=== PATIENT | female | born 2000 | race Caucasian/White ===

== ENCOUNTER 2021-03-08 14:01 | Emergency (ER) | payer BC ==
[2021-03-08 16:11] LABS: Urine Blood 3+ (Negative); Urine Glucose Negative (Negative); Urine Protein Negative (Negative)
[2021-03-08] MEDS ORDERED: MECLIZINE HCL 12.5 MG TAB ONE (16:41)
--- NOTE | 2021-03-08 16:55 | RAD REPORT ---
EXAM DESCRIPTION: RAD - Chest Single View - 03/08/2021 4:46 pm CLINICAL HISTORY: DIZZINESS Chest pain. COMPARISON: No comparisons FINDINGS: Portable technique limits examination quality. The lungs are grossly clear. The heart is normal in size. No displaced fractures. IMPRESSION: No acute intrathoracic process suspected.
--- NOTE | 2021-03-08 17:08 | EDPHYS ---
Physician Documentation [facility] Name: Shelly Medrano Age: 20 yrs Sex: Female : 2000 Arrival Date: 03/08/2021 Time: 14:04 Bed 30 Private MD: ED Physician Thao Gar HPI: 03/08 16:10 This 20 yrs old Female presents to ER via Wheelchair with complaints of pm1 Vertigo. 16:10 The patient presents with vertigo. Onset: The symptoms/episode began/occurred today. pm1 Context: just prior to the episode the patient experienced left ear pain yesterday, nausea for two days. Modifying factors: The symptoms are alleviated by closing eyes, holding head still, the symptoms are aggravated by movement of head, changing position. Associated signs and symptoms: Pertinent positives: nausea, dizziness, Pertinent negatives: chest pain, focal weakness, numbness, shortness of breath, tingling. Severity of symptoms: in the emergency department the symptoms have improved. The patient has experienced similar episodes in the past, a few times. The patient has not recently seen a physician. Historical: - Allergies: 14:43 No Known Allergies; ll1 - PMHx: 14:43 None; ll1 - PSHx: 14:43 None; ll1 - Immunization history:: Client reports having NOT received the Covid vaccine. Flu vaccine is not up to date. - Social history:: Smoking status: Patient denies any tobacco usage or history of. Smoking status: Reported history of juuling and/or vaping. ROS: 16:10 Constitutional: Negative for fever, chills, and weight loss. pm1 16:10 Eyes: Negative for injury, pain, redness, and discharge, Neck: Negative for injury, pain, and swelling. 16:10 Cardiovascular: Negative for chest pain, palpitations, and edema, Respiratory: Negative for shortness of breath, cough, wheezing, and pleuritic chest pain, Back: Negative for injury and pain. 16:10 MS/Extremity: Negative for injury and deformity, Skin: Negative for injury, rash, and discoloration. 16:10 ENT: Positive for ear pain, Negative for sore throat. 16:10 Abdomen/GI: Positive for nausea, Negative for abdominal pain, vomiting, diarrhea. 16:10 Neuro: Positive for dizziness, Negative for headache. Exam: 16:10 Constitutional: This is a well developed, well nourished patient who is awake, alert, pm1 and in no acute distress. 16:10 Neck: Trachea midline, no thyromegaly or masses palpated, and no cervical lymphadenopathy. Supple, full range of motion without nuchal rigidity, or vertebral point tenderness. No Meningismus. 16:10 Skin: Warm, dry with normal turgor. Normal color with no rashes, no lesions, and no evidence of cellulitis. MS/ Extremity: Pulses equal, no cyanosis. Neurovascular intact. Full, normal range of motion. 16:10 Head/face: Sinus tenderness, that is mild, is located over the left maxillary sinus. 16:10 Eyes: Periorbital structures: appear normal, Extraocular movements: intact throughout, Conjunctiva: no acute changes, no injection, Sclera: no acute changes, icterus, is not appreciated, Nystagmus: present with right victor gaze. 16:10 ENT: External ear(s): are unremarkable, Ear canal(s): are normal, TM's: are normal. 16:10 Cardiovascular: Rate: normal, Rhythm: regular, Pulses: no pulse deficits are appreciated. 16:10 Respiratory: Exam negative for acute changes, respiratory distress, shortness of breath, Breath sounds: are clear throughout. 16:10 Neuro: Exam negative for acute changes, Orientation: is normal, Mentation: is normal, Cranial nerves: CN II- XII are normal as tested, Cerebellar function: Romberg testing is negative, normal finger to nose testing, Motor: is normal, Gait: is steady, at a normal pace, without difficulty. Vital Signs: 14:39 BP 113 / 70; Pulse 74; Resp 17; Temp 98.5; Pulse Ox 97% on R/A; Weight 80.74 kg; Height ll1 5 ft. 3 in. (160.02 cm); Pain 0/10; 16:34 BP 104 / 65; Pulse 68; Resp 18; Pulse Ox 100% on R/A; ak2 17:12 BP 116 / 78; Pulse 79; Resp 18; Pulse Ox 100% on R/A; ak2 14:39 Body Mass Index 31.53 (80.74 kg, 160.02 cm) ll1 MDM: 15:35 Patient medically screened. pm1 16:46 Refusal of service: The patient/guardian displays adequate decision making capability pm1 and despite a detailed discussion of alternatives, benefits, risks, and consequences refuses: CT Scan, all lab tests, all X-rays. 17:07 Data reviewed: vital signs. Data interpreted: Pulse oximetry: on room air is 100 %. pm1 Interpretation: normal. Counseling: I had a detailed discussion with the patient and/or guardian regarding: the historical points, exam findings, and any diagnostic results supporting the discharge/admit diagnosis, the need for outpatient follow up, a neurologist, to return to the emergency department if symptoms worsen or persist or if there are any questions or concerns that arise at home. 03/08 16:11 Order name: Urine Dipstick-Ancillary; Complete Time: 16:41 [facility] 03/08 14:55 Order name: Urine Dipstick-Ancillary (obtain specimen) 03/08 14:55 Order name: Urine Test (obtain specimen) 03/08 16:10 Order name: XRAY Chest (1 view) [facility] 03/08 16:10 Order name: EKG; Complete Time: 16:11 [facility] 03/08 16:10 Order name: Cardiac monitoring [facility] 03/08 16:10 Order name: CT Head Brain wo Cont [facility] 03/08 16:56 Order name: RAD; Complete Time: 17:08 [facility] 03/08 16:10 Order name: EKG - Nurse/Tech [facility] 03/08 16:10 Order name: IV Saline Lock 1 03/08 16:10 Order name: Labs collected and sent [facility] 03/08 16:10 Order name: O2 Per Protocol [facility] 03/08 16:10 Order name: O2 Sat Monitoring pm1 Administered Medications: 16:34 Drug: Meclizine 50 mg Route: PO; ak2 Disposition: 03/08/21 17:08 Discharged to Home. Impression: Benign paroxysmal vertigo. - Condition is Stable. - Discharge Instructions: Benign Positional Vertigo. - Prescriptions for Meclizine 25 mg Oral Tablet - take 1 tablet by ORAL route every 8 hours As needed; 30 tablet. - Medication Reconciliation Form, Thank You Letter, Antibiotic Education, Prescription Opioid Use form. - Follow up: Emergency Department; When: As needed; Reason: Worsening of condition. Follow up: Private Physician; When: 2 - 3 days; Reason: Recheck today's complaints, Continuance of care, Re-evaluation by your physician. - Problem is new. - Symptoms have improved. Signatures: Dispatcher [employer] EDDee Esquivel, MARIA DOLORES MCKEON-Nic Driscoll, HAND II THERMAL CUTTER HAND II THERMAL CUTTER pm1 Maurice Roque RN RN ll1 Sonny Salinas ak2 Corrections: (The following items were deleted from the chart) 17:13 17:08 03/08/2021 17:08 Discharged to Home. Impression: Benign paroxysmal vertigo. ak2 Condition is Stable. Forms are Medication Reconciliation Form, Thank You Letter, Antibiotic Education, Prescription Opioid Use. Follow up: Emergency Department; When: As needed; Reason: Worsening of condition. Follow up: Private Physician; When: 2 - 3 days; Reason: Recheck today's complaints, Continuance of care, Re-evaluation by your physician. Problem is new. Symptoms have improved. pm1
--- NOTE | 2021-03-08 17:08 | ER ---
Nurse's Notes [facility] Name: Shelly Medrano Age: 20 yrs Sex: Female : 2000 Arrival Date: 03/08/2021 Time: 14:04 Bed 30 Private MD: Diagnosis: Benign paroxysmal vertigo Presentation: 03/08 14:39 Chief complaint: Patient states: Nausea for a couple days. Awoke today with dizziness, ll1 and room spinning with fast movements. L ear pain yesterday, resolved now. Balance is off, no known fever. Coronavirus screen: Client denies travel out of the [place] in the last 14 days. fatigue, nausea, Client presents with at least one sign or symptom that may indicate coronavirus-19. Standard/surgical mask placed on the client. Ebola Screen: Patient denies travel to an Ebola-affected area in the 21 days before illness onset. Initial Sepsis Screen: Does the patient meet any 2 criteria? No. Patient's initial sepsis screen is negative. Does the patient have a suspected source of infection? No. Patient's initial sepsis screen is negative. Risk Assessment: Do you want to hurt yourself or someone else? Patient reports no desire to harm self or others. Onset of symptoms was March 06, 2021. 14:39 Method Of Arrival: Wheelchair ll1 14:39 Acuity: BRYON 3 ll1 Triage Assessment: 15:32 General: Appears in no apparent distress. Behavior is calm, cooperative. Pain: Denies ak2 pain. Historical: - Allergies: 14:43 No Known Allergies; ll1 - PMHx: 14:43 None; ll1 - PSHx: 14:43 None; ll1 - Immunization history:: Client reports having NOT received the Covid vaccine. Flu vaccine is not up to date. - Social history:: Smoking status: Patient denies any tobacco usage or history of. Smoking status: Reported history of juuling and/or vaping. Screenin:32 Abuse screen: Denies threats or abuse. Denies injuries from another. Nutritional ak2 screening: No deficits noted. Tuberculosis screening: No symptoms or risk factors identified. Fall Risk None identified. Assessment: 15:32 General: Appears in no apparent distress. Pain: Denies pain. Neuro: Reports dizziness. ak2 Cardiovascular: No deficits noted. Respiratory: No deficits noted. 16:33 General: pt refusing blood work and ct. physician aware.. ak2 Vital Signs: 14:39 BP 113 / 70; Pulse 74; Resp 17; Temp 98.5; Pulse Ox 97% on R/A; Weight 80.74 kg; Height ll1 5 ft. 3 in. (160.02 cm); Pain 0/10; 16:34 BP 104 / 65; Pulse 68; Resp 18; Pulse Ox 100% on R/A; ak2 17:12 BP 116 / 78; Pulse 79; Resp 18; Pulse Ox 100% on R/A; ak2 14:39 Body Mass Index 31.53 (80.74 kg, 160.02 cm) ll1 ED Course: 14:04 Patient arrived in ED. as 14:42 Triage completed. ll1 14:43 Arm band placed on. ll1 15:26 Sonny Salinas is Primary Nurse. ak2 15:32 Patient has correct armband on for positive identification. ak2 15:32 No provider procedures requiring assistance completed. ak2 15:35 Nic Barker NP is PHCP. pm1 15:35 Thao Gar MD is Attending Physician. pm1 17:13 Patient did not have IV access during this emergency room visit. ak2 Administered Medications: 16:34 Drug: Meclizine 50 mg Route: PO; ak2 Outcome: 17:08 Discharge ordered by . pm1 17:12 Discharged to home ambulatory. ak2 17:12 Condition: good 17:12 Discharge instructions given to patient. 17:13 Patient left the ED. ak2 Signatures: Wendy Farnsworth as Nic Barker NP SHAREPOINT DEVELOPER pm1 Maurice Roque, BROCK RN 1 Sonny Salinas ak2
[2021-03-08 18:16] VITALS: TEMP 98.5
[2021-03-08 18:17] VITALS: O2SAT 100
[2021-03-08 18:19] VITALS: BP 116/78
--- NOTE | 2021-03-09 07:50 | EKG ---
Test Date: 2021-03-08 Test Time: 16:29:45 Belt Repairer: MEASUREMENT RESULTS: Intervals: Rate: 69 OR: 120 QRSD: 84 QT: 390 QTc: 417 [place]: P: 69 OR: 120 QRS: 70 T: 49 INTERPRETIVE STATEMENTS: Normal sinus rhythm Normal ECG No previous ECG available for comparison Electronically Signed On 03-09-21 07:49:04 CDT by Sadi Subramanian
== END 2021-03-08 17:13 | disposition home or self-care (01) ==
LOC: ER 14:01
DX: H81.10 Benign paroxysmal vertigo, unspecified ear (principal); F17.290 Nicotine dependence, other tobacco product, uncomplicated
CPT/HCPCS: 71045; 81003; 93005; 99283

== ENCOUNTER 2021-08-24 19:54 | Emergency (ER) | payer BC ==
[2021-08-25] MEDS ORDERED: NA CHLORIDE 0.9% 1,000 ML ONE (00:28)
[2021-08-25] MEDS ORDERED: ONDANSETRON 4 MG/2 ML VIAL ONE (00:28)
[2021-08-25 00:53] LABS: Urine Blood Negative (Negative); Urine Glucose Negative (Negative); Urine Protein Negative (Negative); Urine Specific Gravity 1.025 (1.005-1.030)
[2021-08-25 01:51] LABS: Absolute Lymphocytes (CBC) 3.3 K/uL (0.7-4.9); Basophils % 0.8 % (0-1.3); Hematocrit 40.6 % (36.0-45.0); Lymphocytes % 29.6 % (15.3-44.8); MPV 8.4 fL (7.6-11.3); RBC Red Blood Cell Count 4.44 M/uL (3.86-4.86)
[2021-08-25 02:47] LABS: ALT/SGPT 30 U/L (12-78); Albumin 3.4 g/dL (3.4-5.0); Alkaline Phosphatase 73 U/L (45-117); BUN Blood Urea Nitrogen 7 mg/dL (7-18); Bicarbonate 23 mmol/L (21-32); Bilirubin Direct 0.1 mg/dL (0-0.2); Bilirubin Total 0.5 mg/dL (0.2-1.0); Glucose Level 88 mg/dL (74-106); HCG, Quantitative 79760 mIU/mL (1-3); Lipase 98 U/L (73-393); Protein, Total 7.7 g/dL (6.4-8.2); Sodium Level 139 mmol/L (136-145)
[2021-08-25 02:50] LABS: Potassium 3.7 mmol/L (3.5-5.1)
[2021-08-25 02:51] LABS: Urine Specific Gravity/Preg 1.025 (1.005-1.030)
[2021-08-25 02:51] LABS: AST/SGOT 19 U/L (15-37)
--- NOTE | 2021-08-25 03:43 | EDPHYS ---
Physician Documentation [facility] Name: Shelly Medrano Age: 20 yrs Sex: Female : 2000 Arrival Date: 08/24/2021 Time: 19:56 Bed 10 Private MD: ED Physician Gibson Humphrey HPI: 08/25 00:09 This 20 yrs old Female presents to ER via Ambulatory with complaints of Vomiting. mh7 00:09 The patient presents to the emergency department with nausea, that is mild, vomiting, 1 mh7 times since the onset of symptoms, 1 times today, described as clear fluid, abdominal pain, of the suprapubic area, described as intermittent, sharp, waxing and waning, and does not radiate. Onset: The symptoms/episode began/occurred 2 week(s) ago. Possible causes: unknown. The symptoms are aggravated by nothing. The symptoms are alleviated by nothing. Associated signs and symptoms: Pertinent negatives: anorexia, belching, constipation, diarrhea, dysuria, fever, flatulence, GI bleeding, hematuria, vaginal discharge. Severity of symptoms: At their worst the symptoms were mild yesterday, in the emergency department the symptoms have improved moderately. FINANCIAL LEGAL ASSISTANT: 08/24 20:26 00, Full Term 0, Premature 0, 0, Living 0, LMP 07/13/2021 da3 Historical: - Allergies: 20:25 No Known Allergies; da3 - Immunization history:: Client reports having NOT received the Covid vaccine. - Social history:: Smoking status: unknown. ROS: 08/25 00:09 Constitutional: Negative for fever, chills, and weight loss, Eyes: Negative for injury, mh7 pain, redness, and discharge, ENT: Negative for injury, pain, and discharge, Neck: Negative for injury, pain, and swelling, Cardiovascular: Negative for chest pain, palpitations, and edema, Respiratory: Negative for shortness of breath, cough, wheezing, and pleuritic chest pain, Back: Negative for injury and pain, : Negative for injury, bleeding, discharge, and swelling, MS/Extremity: Negative for injury and deformity, Skin: Negative for injury, rash, and discoloration, Neuro: Negative for headache, weakness, numbness, tingling, and seizure, Psych: Negative for depression, anxiety, suicide ideation, homicidal ideation, and hallucinations, Allergy/Immunology: Negative for hives, rash, and allergies, Endocrine: Negative for neck swelling, polydipsia, polyuria, polyphagia, and marked weight changes, Hematologic/Lymphatic: Negative for swollen nodes, abnormal bleeding, and unusual bruising. Exam: 00:09 Constitutional: This is a well developed, well nourished patient who is awake, alert, mh7 and in no acute distress. Head/Face: Normocephalic, atraumatic. Eyes: Pupils equal round and reactive to light, extra-ocular motions intact. Lids and lashes normal. Conjunctiva and sclera are non-icteric and not injected. Cornea within normal limits. Periorbital areas with no swelling, redness, or edema. Neck: Trachea midline, no thyromegaly or masses palpated, and no cervical lymphadenopathy. Supple, full range of motion without nuchal rigidity, or vertebral point tenderness. No Meningismus. Chest/axilla: Normal chest wall appearance and motion. Nontender with no deformity. No lesions are appreciated. Cardiovascular: Regular rate and rhythm with a normal S1 and S2. No gallops, murmurs, or rubs. Normal PMI, no JVD. No pulse deficits. Respiratory: Lungs have equal breath sounds bilaterally, clear to auscultation and percussion. No rales, rhonchi or wheezes noted. No increased work of breathing, no retractions or nasal flaring. Back: No spinal tenderness. No costovertebral tenderness. Full range of motion. Skin: Warm, dry with normal turgor. Normal color with no rashes, no lesions, and no evidence of cellulitis. MS/ Extremity: Pulses equal, no cyanosis. Neurovascular intact. Full, normal range of motion. Neuro: Awake and alert, GCS 15, oriented to person, place, time, and situation. Cranial nerves II-XII grossly intact. Motor strength 5/5 in all extremities. Sensory grossly intact. Cerebellar exam normal. Normal gait. Psych: Awake, alert, with orientation to person, place and time. Behavior, mood, and affect are within normal limits. 00:09 Abdomen/GI: Inspection: abdomen appears normal, Bowel sounds: normal, in all quadrants, mh7 Palpation: mild abdominal tenderness, in the suprapubic area, mass, is not appreciated, rebound tenderness, is not appreciated, voluntary guarding, is not appreciated, involuntary guarding, is not appreciated, no appreciated organomegaly, Rectal exam: the exam is deferred, because of patient request, Indicators: McBurney's point is not tender, Grayson's sign is negative, Rovsing's sign is negative, Obturator sign is negative, Psoas sign is negative, Liver: no appreciated palpable abnormalities, Hernia: not appreciated. 00:09 : Pelvic Exam: The exam is refused by the patient/guardian. The risks and [facility] consequences are understood by the patient. Vital Signs: 08/24 20:22 BP 117 / 69; Pulse 79; Resp 20; Temp 99.2; Pulse Ox 99% on R/A; Weight 86.18 kg; Height da3 5 ft. 3 in. (160.02 cm); 08/25 01:14 BP 100 / 56; Pulse 80; Resp 16 S; Pulse Ox 100% on R/A; bb 03:55 BP 90 / 53; Pulse 73; Resp 20; Temp 98.5(TE); mw2 08/24 20:22 Body Mass Index 33.66 (86.18 kg, 160.02 cm) da3 MDM: 03:40 Differential diagnosis: Nonspecific abd pain, gastritis, UTI. Data reviewed: vital [facility] signs, nurses notes, lab test result(s), amylase and lipase, Beta HCG: CBC, electrolytes, urinalysis, UPT: positive radiologic studies, ultrasound. Data interpreted: Pulse oximetry: on room air is 100 %. Interpretation: normal. Counseling: I had a detailed discussion with the patient and/or guardian regarding: the historical points, exam findings, and any diagnostic results supporting the discharge/admit diagnosis, lab results, radiology results, the need for outpatient follow up, an OB/Gyne specialist, to return to the emergency department if symptoms worsen or persist or if there are any questions or concerns that arise at home. Response to treatment: the patient's symptoms have resolved after treatment, the patient's blood pressure is in an acceptable range, mental status has returned to baseline, the patient no longer shows bradycardia, the patient is not short of breath, the patient is not tachycardic, the patient's pain is gone, the patient's temperature has normalized, the patient is now symptom free, patient is well hydrated. 03:43 Patient medically screened. mh7 08/25 00:09 Order name: Basic Metabolic Panel; Complete Time: 02:53 7 08/25 00:09 Order name: CBC with Diff; Complete Time: 02:24 7 08/25 00:09 Order name: Hepatic Function; Complete Time: 02:53 [facility] 08/25 00:09 Order name: Lipase; Complete Time: 02:53 7 08/25 00:53 Order name: Urine Dipstick-Ancillary; Complete Time: 01:04 EDNM 08/25 00:54 Order name: Urine --Ancillary (enter results); Complete Time: 02:53 ds4 08/25 01:07 Order name: HCG-Quantitative [facility] 08/25 01:07 Order name: Abo/rh Typing [facility] 08/25 01:07 Order name: US Transvaginal Ob [facility] 08/25 01:08 Order name: ABO/RH typing; Complete Time: 03:25 EDMS 08/25 01:54 Order name: HCG, Quantitative; Complete Time: 02:53 [facility] 08/25 00:09 Order name: IV Saline Lock; Complete Time: 00:54 [facility] 08/25 00:09 Order name: Labs collected and sent; Complete Time: 01:50 7 08/25 00:33 Order name: Urine Dipstick-Ancillary (obtain specimen); Complete Time: 00:40 7 08/25 00:33 Order name: Urine Test (obtain specimen); Complete Time: 00:40 7 Administered Medications: 01:12 Drug: NS 0.9% 1000 ml Route: IV; Rate: 1000 ml; Site: right antecubital; bb 01:30 Follow up: IV Status: IV infiltrated; IV Intake: 100ml bb 01:13 Drug: Zofran (Ondansetron) 4 mg Route: IVP; Site: right antecubital; bb 01:50 Follow up: Response: No adverse reaction bb Disposition Summary: 08/25/21 03:43 Discharge Ordered Location: Home [facility] Problem: new [facility] Symptoms: have improved [facility] Condition: Stable [facility] Diagnosis - Less than 8 weeks gestation of mh7 - Nausea with vomiting, unspecified mh7 Followup: [facility] - With: Private Physician - When: 1 - 2 days - Reason: Worsening of condition, Recheck today's complaints, Continuance of care, Re-evaluation by your physician Followup: [facility] - With: Ousmane Caceres MD - When: 2 - 3 days - Reason: Worsening of condition, Recheck today's complaints Discharge Instructions: - Discharge Summary Sheet [facility] - Abdominal Pain During 7 - Nausea and Vomiting, Adult [facility] - Care [facility] - Form - Excuse from Work, School, or Physical Activity [facility] Forms: - Medication Reconciliation Form [facility] - Thank You Letter [facility] - Antibiotic Education [facility] - Prescription Opioid Use [facility] - Work release form Prescriptions: - ondansetron 4 mg Oral tablet,disintegrating - place 1 tablet by TRANSLINGUAL route every 8 hours As needed; 10 tablet; [facility] Refills: 0, Product Selection Permitted Signatures: Dispatcher [employer] Beatriz Goldberg, RN RN bb Gibson Humphrey MD MD 7 Colby Boogie RN RN da3 Corrections: (The following items were deleted from the chart) 01:54 01:08 HCG, Quantitative ordered. EDMS EDMS
--- NOTE | 2021-08-25 03:43 | ER ---
Nurse's Notes [facility] Name: Shelly Medrano Age: 20 yrs Sex: Female : 2000 Arrival Date: 08/24/2021 Time: 19:56 Bed 10 Private MD: Diagnosis: Less than 8 weeks gestation of ;Nausea with vomiting, unspecified Presentation: 08/24 20:22 Chief complaint: Patient states: nausea x 2weeks. Coronavirus screen: Vaccine status: da3 Patient reports being unvaccinated. Ebola Screen: No symptoms or risks identified at this time. Risk Assessment: Do you want to hurt yourself or someone else? Patient reports no desire to harm self or others. 20:22 Method Of Arrival: Ambulatory da3 20:22 Acuity: BRYON 4 da3 Triage Assessment: 20:26 General: Appears in no apparent distress. comfortable, Behavior is calm, cooperative, da3 appropriate for age. 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 - Social history:: Smoking status: unknown. Screenin/08 00:08 Abuse screen: Denies threats or abuse. Nutritional screening: No deficits noted. bb Tuberculosis screening: No symptoms or risk factors identified. Fall Risk None identified. Assessment: 00:08 General: Appears in no apparent distress. Behavior is calm, cooperative. Pain: bb Complains of pain in abdomen. Neuro: Level of Consciousness is awake, alert, obeys commands, Oriented to person, place, time, situation. Cardiovascular: Capillary refill < 3 seconds Patient's skin is warm and dry. Respiratory: Airway is patent Respiratory effort is even, unlabored, Respiratory pattern is regular. GI: Abdomen is non-distended, Reports vomiting. : Reports she thinks she may be . Derm: Skin is pink, warm \T\ dry. Musculoskeletal: Circulation, motion, and sensation intact. 01:13 Reassessment: Patient is alert, oriented x 3, equal unlabored respirations, skin bb warm/dry/pink. pt actively vomiting c/o pain to IV site. IV d/c with catheter intact, bleeding controlled, pressure dressing applied. 01:45 Reassessment: Patient is alert, oriented x 3, equal unlabored respirations, skin bb warm/dry/pink. pt to US via wheelchair with tech. 03:54 Reassessment: Patient is alert, oriented x 3, equal unlabored respirations, skin bb warm/dry/pink. pt verbalized understanding of and agrees to plan of care discharge instructions given pt ambulated with steady gait to exit accompanied by family. Vital Signs: 08/24 20:22 BP 117 / 69; Pulse 79; Resp 20; Temp 99.2; Pulse Ox 99% on R/A; Weight 86.18 kg; Height da3 5 ft. 3 in. (160.02 cm); 08/25 01:14 BP 100 / 56; Pulse 80; Resp 16 S; Pulse Ox 100% on R/A; bb 03:55 BP 90 / 53; Pulse 73; Resp 20; Temp 98.5(TE); mw2 08/24 20:22 Body Mass Index 33.66 (86.18 kg, 160.02 cm) da3 ED Course: 08/24 19:56 Patient arrived in ED. ag3 20:25 Triage completed. da3 23:52 Gibson Humphrey MD is Attending Physician. 7 08/25 00:08 Betariz Campbell, BROCK is Primary Nurse. bb 00:08 Patient has correct armband on for positive identification. Call light in reach. Adult bb w/ patient. 00:51 Inserted saline lock: 22 gauge in right forearm, using aseptic technique. ds4 01:45 Initial lab(s) drawn, by me, sent to lab. Missed attempt(s): 20 gauge in right bb antecubital area. Bleeding controlled, band aid applied, catheter tip intact. 02:17 US Transvaginal Ob In Process Unspecified. EDMS 03:42 Ousmane Caceres MD is Referral Physician. 7 03:56 No provider procedures requiring assistance completed. Patient did not have IV access bb during this emergency room visit. Administered Medications: 01:12 Drug: NS 0.9% 1000 ml Route: IV; Rate: 1000 ml; Site: right antecubital; bb 01:30 Follow up: IV Status: IV infiltrated; IV Intake: 100ml bb 01:13 Drug: Zofran (Ondansetron) 4 mg Route: IVP; Site: right antecubital; bb 01:50 Follow up: Response: No adverse reaction bb Intake: 01:30 IV: 100ml; Total: 100ml. bb Outcome: 03:43 Discharge ordered by . miguel a 03:56 Discharged to home ambulatory, with family. fang 03:56 Condition: stable 03:56 Discharge instructions given to patient, Instructed on discharge instructions, follow up and referral plans. medication usage, Demonstrated understanding of instructions, follow-up care, medications, Prescriptions given X 1. 03:56 Patient left the ED. bb Signatures: Dispatcher [employer] EDMS Beatriz Campbell, RN RN bb Eleazar Lindo ds4 Alonzo Mcmahon2 Cassie Lara3 Gibson Humphrey MD MD mh7 Colby Boogie RN RN da3
[2021-08-25 04:23] VITALS: O2SAT 100
[2021-08-25 04:25] VITALS: BP 90/53; TEMP 98.5
--- NOTE | 2021-08-25 05:47 | RAD REPORT ---
EXAM DESCRIPTION: US - Transvaginal OB - 08/25/2021 2:17 am CLINICAL HISTORY: with pelvic pain COMPARISON: None. FINDINGS: The uterus measures 7 x 5 x 4 centimeters. A normal appearing gestational sac is present within the endometrium. Within this is a yolk sac and pole with a crown-rump length 1.3 centime ters. Cardiac activity 154 beats per minute 3 centimeter right ovarian cyst. Left ovary not seen secondary to overlying bowel gas. The right and left adnexa are unremarkable No significant free fluid is seen. IMPRESSION: Single live intrauterine with an estimated gestational age 7 weeks 4 days ARIEL 04/09/2022 3 centimeter right ovarian cyst
== END 2021-08-25 03:56 | disposition home or self-care (01) ==
LOC: ER 19:54
DX: O21.9 Vomiting of pregnancy, unspecified (principal); Z3A.08 8 weeks gestation of pregnancy
CPT/HCPCS: 85025; 80048; 36415; 86900; 81025; 86901; 80076; 84702; 81003; 83690; 76817; 96374; 99284; J7030; J2405

== ENCOUNTER 2023-03-21 23:49 | Emergency (ER) | payer BC ==
[2023-03-22 01:03] LABS: Specific Gravity 1.019 (1.005-1.030); Urine Bacteria None Seen /HPF (<20); Urine Bilirubin NEGATIVE (Negative); Urine Blood 3+ (Negative); Urine Clarity Extremely Turbid (Clear); Urine Color Light-Yellow (Yellow); Urine Glucose NEGATIVE (Negative); Urine Mucus Slight /HPF (None Seen); Urine Protein 1+ (Negative); Urine RBC >50 /HPF (None Seen); Urine Urobilinogen Normal (Normal); Urine pH 6.5 (5.0-7.0)
[2023-03-22] MEDS ORDERED: LIDOCAINE 1% MPF 2 ML AMPULE ONE (01:23)
[2023-03-22] MEDS ORDERED: CEFTRIAXONE 1000 MG/VIAL ONE (01:23)
--- NOTE | 2023-03-22 02:06 | ER ---
Nurse's Notes [facility] Name: Shelly Medrano Age: 22 yrs Sex: Female : 2000 Arrival Date: 03/21/2023 Time: 23:49 Bed IW1 Private MD: Diagnosis: UTI/ Urinary tract infection, site not specified Presentation: 03/22 00:00 Chief complaint: Patient states: C/o abdominal pain 7/10, states "I think I have a UTI, ll3 I feel like I have to pee constantly". Coronavirus screen: Vaccine status: Patient reports being unvaccinated. At this time, the client does not indicate any symptoms associated with coronavirus-19. Ebola Screen: No symptoms or risks identified at this time. Initial Sepsis Screen: Does the patient meet any 2 criteria? HR > 90 bpm. Yes Does the patient have a suspected source of infection? Yes: Dysuria/Frequency/Urgency/UTI. Risk Assessment: Do you want to hurt yourself or someone else? Patient reports no desire to harm self or others. Onset of symptoms was March 19, 2023. 00:00 Method Of Arrival: Ambulatory ll3 00:00 Acuity: BRYON 3 ll3 00:00 Care prior to arrival: Medication(s) given: Motrin, 800 mg, at 10:30 PM. ll3 Triage Assessment: 00:03 General: Appears uncomfortable, Behavior is calm, cooperative. Pain: Complains of pain ll3 in right lower quadrant and left lower quadrant Pain does not radiate. Pain currently is 7 out of 10 on a pain scale. Quality of pain is described as crampy, Pain began 1 day ago. Is continuous. GI: Abdomen is round non-distended, Reports lower abdominal pain, nausea. : Reports urgency, urinary frequency. Derm: Skin is pink, warm \\T\\ dry. 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 - Social history:: Smoking status: Reported history of juuling and/or vaping. Vital Signs: 00:00 BP 128 / 80; Pulse 104; Resp 17; Temp 99.5(O); Pulse Ox 99% on R/A; Weight 97.52 kg ll3 (R); Height 5 ft. 3 in. (R); Pain 710; 00:00 Body Mass Index 38.09 (97.52 kg, 160.02 cm) ll3 00:00 Pain Scale: Adult 3 ED Course: 03/21 23:50 Patient arrived in ED. [id number] 03/22 00:03 Triage completed. ll3 00:03 Arm band placed on Patient placed in waiting room, Patient notified of wait time. ll3 00:36 [facility]C [facility]. snw 00:36 Daryl Enrique MD is Attending Physician. snw Administered Medications: No medications were administered Outcome: 02:05 Discharge ordered by . snw 02:08 Patient left the ED. mb9 Signatures: Liz Goldman FNP-C LARD BLEACHER-Csnw Serene Crocker jj6 Julisa Flores, RN RN ll3 Lian Landis, RN RN mb9
--- NOTE | 2023-03-22 02:06 | EDPHYS ---
Physician Documentation [facility] Name: Shelly Medrano Age: 22 yrs Sex: Female : 2000 Arrival Date: 03/21/2023 Time: 23:49 Bed IW1 Private MD: ED Physician Daryl Enrique HPI: 03/22 02:01 This 22 yrs old Female presents to ER via Ambulatory with complaints of Abdominal Pain. 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 - Social history:: Smoking status: Reported history of juuling and/or vaping. ROS: 02:01 Constitutional: Negative for fever, chills, and weight loss, Eyes: Negative for injury, snw pain, redness, and discharge, ENT: Negative for injury, pain, and discharge, Neck: Negative for injury, pain, and swelling, Cardiovascular: Negative for chest pain, palpitations, and edema, Respiratory: Negative for shortness of breath, cough, wheezing, and pleuritic chest pain, Abdomen/GI: Negative for nausea, vomiting, diarrhea, and constipation, + abdominal pain, dysuria Back: Negative for injury and pain, : Negative for injury, bleeding, discharge, and swelling, MS/Extremity: Negative for injury and deformity, Skin: Negative for injury, rash, and discoloration, Neuro: Negative for headache, weakness, numbness, tingling, and seizure. Exam: 02:01 Constitutional: The patient appears alert, awake, I evaluated pt urine sample, vital snw signs, and allergies. +UTI, ordered Rocephin. Pt not in lobby to complete assessment or to receive abx. Pt called on her phone, no answer Vital Signs: 00:00 BP 128 / 80; Pulse 104; Resp 17; Temp 99.5(O); Pulse Ox 99% on R/A; Weight 97.52 kg ll3 (R); Height 5 ft. 3 in. (R); Pain 7/10; 00:00 Body Mass Index 38.09 (97.52 kg, 160.02 cm) ll3 00:00 Pain Scale: Adult ll3 MDM: 00:36 Patient medically screened. snw 02:01 Differential diagnosis: Pyelonephritis, urinary tract infection. Data reviewed: vital snw signs, nurses notes. ED course: Pt left the ED prior to physical exam by me. 03/22 00:36 Order name: Urine W/Microscopic (UAM); Complete Time: : snw 03/22 00:36 Order name: PREGU; Complete Time: 01: snw 03/22 01:05 Order name: Urine Culture EDMS Administered Medications: No medications were administered Disposition: : Chart complete. snw 07:56 Co-signature as Attending Physician, Daryl Enrique MD I agree with the assessment sp4 and plan of care. I reviewed the patient's care provided by the Advanced Practice Provider and agree with the diagnosis and treatment plan. Disposition Summary: 03/22/23 02:05 Discharge Ordered Location: Home snw Condition: Stable snw Diagnosis - UTI/ Urinary tract infection, site not specified snw Followup: snw - With: Emergency Department - When: As needed - Reason: Worsening of condition Followup: snw - With: Private Physician - When: Today - Reason: Recheck today's complaints, Continuance of care, Re-evaluation by your physician Discharge Instructions: - Discharge Summary Sheet snw - Dysuria snw - Urinary Tract Infection, Adult snw - Rehydration, Adult snw Forms: - Medication Reconciliation Form snw - Thank You Letter snw - Antibiotic Education snw - Prescription Opioid Use snw - [email or web address] snw Prescriptions: - Augmentin 875-125 mg Oral Tablet - take 1 tablet by ORAL route every 12 hours for 10 days; 20 tablet; Refills: 0, snw Product Selection Permitted Signatures: Dispatcher [employer] EDMS Liz Goldman FNP-C FNP-Julisa Foster RN RN ll3 Daryl Enrique MD MD sp4
[2023-03-22 02:13] VITALS: BP 128/80; TEMP 99.5; O2SAT 99
== END 2023-03-22 02:08 | disposition home or self-care (01) ==
LOC: ER 23:49
DX: N39.0 Urinary tract infection, site not specified (principal)
CPT/HCPCS: 81001; 81025; 87077; 87086; 87088; 87186; 99281; J0696